=== PATIENT | male | born 1955 | race Caucasian/White ===

== ENCOUNTER → 2016-06-11 | Day surgery (SDC) | payer OTHER ==
[~2016-06-11] VITALS: Ht 167.6 cm; Wt 72.1 kg
--- NOTE | 2016-06-11 11:53 | ED GI/GU/ABDOMINAL COMPLAINT ---
History of Present Illness General Chief Complaint: Abdominal Pain/Flank Pain Stated Complaint: ABD PAIN RADIATING TO L SIDE,+N/V Source: patient Exam Limitations: no limitations Vital Signs & Intake/Output Vital Signs & Intake/Output Vital Signs Date Time Temp Pulse Resp B/P Pulse O2 O2 Flow FiO2 Ox Delivery Rate 06/11 1615 98.0 74 18 118/76 97 Room Air Room Air 06/11 1425 95 Room Air 06/11 1345 98.4 63 20 115/61 95 Room Air 06/11 1103 98.2 81 20 144/82 97 Room Air Allergies Coded Allergies: No Known Allergies (06/11/16) Reconcile Medications No Known Home Medications Triage Note: PT PRESENTS TO ER C/O OF LEFT SIDED ABDOMINAL PAIN THAT RADIATES TO LEFT FLANK. PT STATES PAIN STARTED LAST NIGHT. +N/V Triage Nurses Notes Reviewed? yes HPI: This patient is a 60-year-old male with a past medical history including AMI who presented to the emergency department today for evaluation of abdominal pain and left flank pain. The patient reported that he was woken from sleep at approximately 12:30 AM with an upset stomach. He reported that he vomited approximately 3 or 4 times with no blood in the vomitus that he noticed he reported associated nausea. The patient reported that as the morning went on, she noticed pain in his left flank and pain radiating into his left groin. He denied a history of any kidney stones. He denied any urinary burning, urgency, frequency, or blood in the urine. He reported chills, but no fevers. He denied any chest pain or difficulty breathing. (HERNANDO PULLIAM PA-C) Past History Travel History Traveled to [place] past 21 day No Medical History Any Pertinent Medical History? see below for history Neurological: NONE EENT: NONE Cardiovascular: myocardial infarction Respiratory: NONE Gastrointestinal: NONE Surgical History Surgical History: non-contributory Psychosocial History What is your primary language Arabic Tobacco Use: Never used Family History Hx Contributory? No (HERNANDO PULLIAM PA-C) Review of Systems Review of Systems Constitutional: Reports: see HPI. EENTM: Reports: no symptoms. Respiratory: Reports: no symptoms. Cardiovascular: Reports: no symptoms. GI: Reports: see HPI. Genitourinary: Reports: see HPI. Musculoskeletal: Reports: see HPI. Skin: Reports: no symptoms. Neurological/Psychological: Reports: no symptoms. All Other Systems: Reviewed and Negative (HERNANDO PULLIAM PA-C) Physical Exam Physical Exam Gastrointestinal: normal bowel sounds, soft, non-tender, no organomegaly, NO REBOUND OR GUARDING. nO MASSES APPRECIATED. nO mCbURNEY'S POINT TENDERNESS. nEGATIVE White SIGN. nEGATIVE rOVSING SIGN. nEGATIVE PSOAS SIGN. Comments: Well-developed well-nourished person in no acute distress HEENT: Normal EENT exam, moist mucous membranes Neck: Supple with no lymphadenopathy Back: Normal gait. Normal inspection. Left-sided CVA tenderness. No midline tenderness Cardiovascular: Regular rate and rhythm with no murmurs Respiratory: No respiratory distress. Speaking in full sentences Extremity: Normal and equal pulses Neuro: Alert oriented x3, cranial nerves II through XII grossly intact. Skin: No appreciable rash on exposed skin, skin is warm and dry. Psych: Mood and affect is normal Core Measures ACS in differential dx? No Severe Sepsis Present: No Septic Shock Present: No (HERNANDO PULLIAM PA-C) Progress Differential Diagnosis: AAA, AMI, appendicitis, biliary colic, bowel obstruction , colon cancer, cholecystitis, diverticulitis, gastritis, hepatitis, ischemic bowel, inflamm bowel dis, pancreatitis, PUD/GERD, perforated viscous, pyelonephritis, ureterolithiasis, urinary retention, urethritis, UTI/pyelo Plan of Care: Orders Procedure Date/time Status PATHOLOGY SPECIMEN 06/11 1726 Active EKG 06/11 1600 Active CULTURE,URINE 06/11 1129 Active URINALYSIS 06/11 1129 Complete TROPONIN LEVEL 06/11 1129 Complete LIPASE 06/11 1129 Complete DIRECT BILIRUBIN 06/11 1129 Complete COMPREHENSIVE METABOLIC PANEL 06/11 1129 Complete CBC WITHOUT DIFFERENTIAL 06/11 1129 Complete AMYLASE 06/11 1129 Complete Laboratory Tests 06/11/16 1203: Anion Gap 8, Estimated GFR 56 L, BUN/Creatinine Ratio 21.5, Glucose 124 H, Calcium 9.8, Total Bilirubin 0.6, Direct Bilirubin 0.2, AST 40, ALT 46, Alkaline Phosphatase 61, Troponin I < 0.01, Total Protein 7.1, Albumin 4.2, Globulin 2.9, Albumin/Globulin Ratio 1.4, Amylase 77, Lipase 95, CBC w Diff NO MAN DIFF REQ, RBC 5.33, MCV 89.0, MCH 30.6, RDW 13.1, MPV 7.6, Gran % 84.4 H, Lymphocytes % 11.7 L, Monocytes % 3.6, Eosinophils % 0, Basophils % 0.3, Absolute Granulocytes 12.4 H, Absolute Lymphocytes 1.7, Absolute Monocytes 0.5, Absolute Eosinophils 0, Absolute Basophils 0, PUBS MCHC 34.4 06/11/16 1200: Urine Color YEL, Urine Clarity CLEAR, Urine pH 6.0, Ur Specific [place] 1.025, Urine Protein NEG, Urine Ketones NEG, Urine Nitrite NEG, Urine Bilirubin NEG, Urine Urobilinogen 0.2, Ur Leukocyte Esterase NEG, Ur Microscopic SEDIMENT EXAMINED, Urine RBC 10-15 H, Urine Hemoglobin LARGE H, Urine Glucose NEG Microbiology 06/11 1200 URINE ROUT: Urine Culture - RECD Diagnostic Imaging: Viewed by Me: CT Scan. Discussed w/RAD: CT Scan. Radiology Impression: PATIENT: GAURAV MARTINEZ PRESENT AGE: 60 PATIENT ACCOUNT NO: [id number] : 53 LOCATION: [facility] ORDERING PHYSICIAN: HERNANDO PULLIAM PA-C SERVICE DATE: 06/11/16 EXAM TYPE: CAT - CT ABD & PELVIS W/O IV CONTRAS EXAMINATION: CT ABDOMEN AND PELVIS WITHOUT CONTRAST CLINICAL INFORMATION: Left-sided flank pain, question urolithiasis. COMPARISON: None. TECHNIQUE: Multidetector volumetric imaging was performed from the superior aspect of the liver through the pubic symphysis. Sagittal and coronal reformatted images were obtained on the technologist's workstation. DLP: 347 mGy-cm FINDINGS: There are either stents or extensive atherosclerotic calcification in the left coronaries. Otherwise, the lung bases appear unremarkable. There is moderate soft tissue stranding surrounding the left kidney, with moderate left-sided hydronephrosis with a moderate-sized oblong calculus at the left ureteropelvic junction, measuring 10 x 4 mm. Otherwise, there is no evidence of urolithiasis. No suspicious appearing renal masses are identified on this noncontrast examination. The liver, spleen, pancreas, gallbladder and biliary tree appear unremarkable. A small sliding hiatal hernia is suspected. The adrenal glands appear unremarkable. There is moderate atherosclerotic aortic calcification without aneurysmal dilatation. There is no retroperitoneal lymphadenopathy. The prostate is not significantly enlarged for the patient's age. Urinary bladder is underdistended and unremarkable. The anterior abdominal wall demonstrates a small direct left inguinal hernia containing only mesenteric fat. Lucent changes in the roof of the acetabulum on the right side are likely reactive and degenerative. No aggressive appearing osseous lesions are seen. There are degenerative disc changes greater than facet changes at the lumbosacral junction. IMPRESSION: 1. Small to moderate-sized left renal calculus with moderate left hydronephrosis. 2. Otherwise, there is no evidence of urolithiasis. 3. Otherwise, exam is largely unremarkable with the exception of probable atherosclerotic coronary greater than aortic disease, with a small left inguinal hernia suspected. DICTATED BY: KELLY CALLES MD DATE/TIME DICTATED:06/11/161324 TOURIST HOME KEEPER:LANCE DATE/TIME TRANSCRIBED:06/11/161324 CONFIDENTIAL, DO NOT COPY WITHOUT APPROPRIATE AUTHORIZATION. <Electronically signed in Other Vendor System> SIGNED BY: KELLY CALLES MD 06/11/16 1350 Initial ED EKG: none Comments: 06/11/2016 2:51:44 PM: I spoke to on-call urologist who stated that she will be in to see this patient and bring him to the OR today for stent placement. The patient last ate last night. (HERNANDO PULLIAM PA-C) Departure Departure Disposition: STILL A PATIENT Condition: Stable Clinical Impression Primary Impression: Ureterolithiasis Referrals: CHANNING GOODWIN MD PATIENT HAS NO PRIMARY CARE DR (PCP/Family) Departure Forms: Customer Survey General Discharge Information Prescriptions: Current Visit Scripts No Known Home Medications OR/GI Note Spoke With: CHANNING GOODWIN MD ED Treatment Decision: GAURAV MARTINEZ requires urgent operative management or an emergent procedure that cannot be performed in the Emergency Room setting. Transport To: [facility] (HERNANDO PULLIAM PA-C) PA/METAL ENGRAVER Co-Sign Statement Statement: ED Attending supervision documentation- [] I saw and evaluated the patient. I have also reviewed all the pertinent lab results and diagnostic results. I agree with the findings and the plan of care as documented in the PA's/METAL ENGRAVER's documentation. [X] I have reviewed the ED Record and agree with the PA's/METAL ENGRAVER's documentation. [] Additions or exceptions (if any) to the PAs/METAL ENGRAVER's note and plan are summarized below: [] (ISI AHN DO
[2016-06-11 12:11] LABS: ABSOLUTE BASOPHIL COUNT 0 /CUMM (0.0-0.2); ABSOLUTE EOSINOPHIL COUNT 0 /CUMM (0.0-0.7); ABSOLUTE GRANULOCYTE CT 12.4 /CUMM (1.4-6.5); ABSOLUTE LYMPH COUNT 1.7 /CUMM (1.2-3.4); ABSOLUTE MONOCYTE COUNT 0.5 /CUMM (0.10-0.60); BASOPHIL % 0.3 % (0.0-2.0); EOSINOPHIL % 0 % (0-5); HEMATOCRIT 47.5 % (42-52); MEAN CORPUSCULAR HGB 30.6 PG (27.0-31.0); MEAN CORPUSCULAR HGB CONC 34.4 G/DL (33.0-37.0); MEAN PLATELET VOLUME 7.6 FL (7.4-10.4); PLATELET COUNT 220 /CUMM (130-400); RBC DISTRIBUTION WIDTH 13.1 % (11.5-14.5); RED BLOOD CELL CT 5.33 /CUMM (4.70-6.10); WHITE BLOOD CELL COUNT 14.7 /CUMM (4.8-10.8)
[2016-06-11 12:32] LABS: GRANULOCYTE % 84.4 % (42.2-75.2)
--- NOTE | 2016-06-11 13:50 | CT SCAN REPORT ---
EXAMINATION: CT ABDOMEN AND PELVIS WITHOUT CONTRAST CLINICAL INFORMATION: Left-sided flank pain, question urolithiasis. COMPARISON: None. TECHNIQUE: Multidetector volumetric imaging was performed from the superior aspect of the liver through the pubic symphysis. Sagittal and coronal reformatted images were obtained on the technologist's workstation. DLP: 347 mGy-cm FINDINGS: There are either stents or extensive atherosclerotic calcification in the left coronaries. Otherwise, the lung bases appear unremarkable. There is moderate soft tissue stranding surrounding the left kidney, with moderate left-sided hydronephrosis with a moderate-sized oblong calculus at the left ureteropelvic junction, measuring 10 x 4 mm. Otherwise, there is no evidence of urolithiasis. No suspicious appearing renal masses are identified on this noncontrast examination. The liver, spleen, pancreas, gallbladder and biliary tree appear unremarkable. A small sliding hiatal hernia is suspected. The adrenal glands appear unremarkable. There is moderate atherosclerotic aortic calcification without aneurysmal dilatation. There is no retroperitoneal lymphadenopathy. The prostate is not significantly enlarged for the patient's age. Urinary bladder is underdistended and unremarkable. The anterior abdominal wall demonstrates a small direct left inguinal hernia containing only mesenteric fat. Lucent changes in the roof of the acetabulum on the right side are likely reactive and degenerative. No aggressive appearing osseous lesions are seen. There are degenerative disc changes greater than facet changes at the lumbosacral junction. IMPRESSION: 1. Small to moderate-sized left renal calculus with moderate left hydronephrosis. 2. Otherwise, there is no evidence of urolithiasis. 3. Otherwise, exam is largely unremarkable with the exception of probable atherosclerotic coronary greater than aortic disease, with a small left inguinal hernia suspected.
[2016-06-11 16:15] VITALS: BP 118/76
--- NOTE | 2016-06-11 17:43 | Operative Report ---
Operative/Inv Procedure Report Surgery Date: 06/11/16 Name of Procedure: cystoscopy, left rpg, left stent placement. TURBT of left bladder tumors x2 above ureteral orifice Pre-Operative Diagnosis: left obtructing stone at UPJ Post-Operative Diagnosis: same adn bladder tumors x2 superior to left UO Estimated Blood Loss: less than 50ml Surgeon/Farmworker [employer]: Tammy Oleary Anesthesia: laryngeal mask airway Drains: 6x24 stent Specimens: bladder tumors Complications: none Condition: stable Operative Indication: left obstructing stone with pain Operative/Procedure Note Note: Operative dictation on patient Geoffrey Larios. He was evaluated in the emergency room due to left flank pain. He had a CT scan which showed a left obstructing UPJ stone 10 x 4 mm in size. Had moderate hydronephrosis associated with it and pain medicine was adequate until wore off. As a result he was consented for a left ureteral stent placement with cystoscopy. The risks benefits and alternatives of the surgery were given. All questions were answered. Patient was identified in the holding area and taken to the operating room. He was placed in the supine position and. Timeout was performed. IV Kefzol 2 g were given and LMA anesthesia was started. He was placed in the dorsolithotomy position and prepped and draped in the standard sterile fashion. Cystoscopy was performed and the bladder was globally inspected. It was free of any trabeculation or lesions however there were 2 incidental bladder tumors found on the left lateral wall superior to the ureteral orifice. This was not commented on the CAT scan. The left saphenous ureteral orifice was cannulated with a 5 [place] open-ended catheter. Retropyelogram was performed and there was no evidence of any ureteral obstruction however UPJ mild obstruction with mild hydronephrosis behind it was appreciated. The Solo guidewire was placed up the open-ended catheter and with fluoroscopic guidance the 6 x 24 cm ureteral stent was placed over the wire without difficulty. Once it was seen to be in good position the wire was removed. Attention was then turned to the bladder tumors that were incidentally found. 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 These were resected without difficulty down to bladder muscle. These were sent off to pathology in formalin. The area was coagulated as needed and there was no active bleeding at the end of the case. There were no other tumors that were appreciated. The bladder was emptied. The stent was seen to be in good position. The patient tolerated the procedure well. Findings: well placed lef tureteral stent lateral wall bladder tumors x2 superior to the left ureteral orifice
--- NOTE | 2016-06-11 17:50 | Cons- Urology ---
General Information and HPI Consulting Request Date of Consult: 06/11/16 Requested By: ER Reason for Consult: left obstructing UPJ stone Source of Information: patient Exam Limitations: no limitations History of Present Illness: This is a 60-year-old male with a history of myocardial infarction status post cardiac stent to was evaluated in the [facility] ER due to left flank pain. He was given pain medicine however on CAT scan he was seen to have a 10 x 4 mm obstructing UPJ stone. Given the size of the stone and unremitting pain and elevated white blood count he was kept nothing by mouth for possible ureteral stent. He has no previous history of kidney stones. He has no history of UTIs prostatitis or gross hematuria. Allergies/Medications Allergies: Coded Allergies: No Known Allergies (06/11/16) Home Med List: No Known Home Medications Current Medications: Current Medications Sig/Jose Carlos Start time Last Medication Dose Route Stop Time Status Admin Ketorolac 0 .STK-MED ONE 06/11 1210 DC Tromethamine .ROUTE Ketorolac 30 MG ONCE ONE 06/11 1130 DC 04/03 Tromethamine IV 06/11 1131 1214 Morphine Sulfate 0 .STK-MED ONE 06/11 1418 DC .ROUTE Morphine Sulfate 2 MG ONCE ONE 06/11 1400 DC 04/03 IV 04/03 1401 1420 Ondansetron HCl 0 .STK-MED ONE / 1210 DC .ROUTE Ondansetron HCl 4 MG ONCE ONE 06/11 1130 DC 04/03 IV 04/ 1131 1214 Sodium Chloride 1,000 ML BOLUS ONE 06/11 1130 DC 04/03 IV 04/ 1229 1214 Past History Medical History Blood Transfusion Hx: No Neurological: NONE EENT: NONE Cardiovascular: cardiomyopathy, myocardial infarction Respiratory: NONE Gastrointestinal: NONE Hepatic: NONE Renal: NONE Musculoskeletal: NONE Psychiatric: NONE Endocrine: NONE Blood Disorders: NONE Cancer(s): NONE INSPECTION SUPERVISOR/Reproductive: NONE Surgical History Pertinent Surgical History: non-contributory, cardiac stent Psychosocial History Where Do You Live? Home Services at Home: None Primary Language: Iraqi Smoking Status: Unknown If Ever Smoked ETOH Use: occasional use Illicit Drug Use: denies illicit drug use Living Will? unknown Power of Requirements Analyst/HCP? unknown Functional Ability ADLs Independent: dressing, eating, toileting, bathing. Ambulation: independent IADLs Independent: shopping, housework, finances, food prep, telephone, transportation , medication admin. Employment History Employment: Employed Retired? no Review of Systems Review of Systems Constitutional: Reports: no symptoms. EENTM: Reports: no symptoms. Cardiovascular: Reports: no symptoms. Respiratory: Reports: no symptoms. GI: Reports: no symptoms. Musculoskeletal: Reports: back pain. Skin: Reports: no symptoms. Neurological/Psychological: Reports: no symptoms. Hematologic/Endocrine: Reports: no symptoms. Immunologic/Allergic: Reports: no symptoms. Exam & Diagnostic Data Vital Signs and I&O Vital Signs Date Time Temp Pulse Resp B/P Pulse O2 O2 Flow FiO2 Ox Delivery Rate 06/11 1615 98.0 74 18 118/76 97 Room Air Room Air 06/11 1425 95 Room Air 06/11 1345 98.4 63 20 115/61 95 Room Air 06/11 1103 98.2 81 20 144/82 97 Room Air Intake & Output 06/11 1600 06/11 0800 / 0000 06/10 1600 06/10 0800 06/10 0000 Intake Total 1000 Output Total Balance 1000 Intake, IV 1000 Physical Exam General Appearance: well developed/nourished, no apparent distress, alert, awake , comfortable Head: atraumatic, normal appearance Eyes: Bilateral: normal appearance. Ears, Nose, Throat: normal ENT inspection Neck: normal inspection Respiratory: normal breath sounds Cardiovascular: regular rate/rhythm Gastrointestinal: normal bowel sounds, soft, non-tender Rectal: deferred Back: CVA tenderness (L) Extremities: normal inspection Neurologic/Psych: awake, alert, oriented x 3 Cranial Nerves: normal hearing, normal speech Skin: intact, normal color, warm/dry Reproductive: Normal male genitalia Last 24 Hours of Labs: Laboratory Tests 06/11 06/11 1203 1200 Chemistry Sodium (137 - 145 mmol/L) 140 Potassium (3.5 - 5.1 mmol/L) 4.3 Chloride (98 - 107 mmol/L) 108 H Carbon Dioxide (22 - 30 mmol/L) 24 Anion Gap (5 - 16) 8 BUN (9 - 20 mg/dL) 28 H Creatinine (0.7 - 1.2 mg/dL) 1.3 H Estimated GFR (>60 ml/min) 56 L BUN/Creatinine Ratio (7 - 25 %) 21.5 Glucose (65 - 99 mg/dL) 124 H Calcium (8.4 - 10.2 mg/dL) 9.8 Total Bilirubin (0.2 - 1.3 mg/dL) 0.6 Direct Bilirubin (< 0.4 mg/dL) 0.2 AST (17 - 59 U/L) 40 ALT (21 - 72 U/L) 46 Alkaline Phosphatase (< 127 U/L) 61 Troponin I (<0.11 ng/ml) < 0.01 Total Protein (6.3 - 8.2 g/dL) 7.1 Albumin (3.5 - 5.0 g/dL) 4.2 Globulin (1.9 - 4.2 gm/dL) 2.9 Albumin/Globulin Ratio (1.1 - 2.2 %) 1.4 Amylase (30 - 110 U/L) 77 Lipase (23 - 300 U/L) 95 Hematology CBC w Diff NO MAN DIFF REQ WBC (4.8 - 10.8 /CUMM) 14.7 H RBC (4.70 - 6.10 /CUMM) 5.33 Hgb (14.0 - 18.0 G/DL) 16.3 Hct (42 - 52 %) 47.5 MCV (80.0 - 94.0 FL) 89.0 MCH (27.0 - 31.0 PG) 30.6 RDW (11.5 - 14.5 %) 13.1 Plt Count (130 - 400 /CUMM) 220 MPV (7.4 - 10.4 FL) 7.6 Gran % (42.2 - 75.2 %) 84.4 H Lymphocytes % (20.5 - 51.1 %) 11.7 L Monocytes % (1.7 - 9.3 %) 3.6 Eosinophils % (0 - 5 %) 0 Basophils % (0.0 - 2.0 %) 0.3 Absolute Granulocytes (1.4 - 6.5 /CUMM) 12.4 H Absolute Lymphocytes (1.2 - 3.4 /CUMM) 1.7 Absolute Monocytes (0.10 - 0.60 /CUMM) 0.5 Absolute Eosinophils (0.0 - 0.7 /CUMM) 0 Absolute Basophils (0.0 - 0.2 /CUMM) 0 PUBS MCHC (33.0 - 37.0 G/DL) 34.4 Urines Urine Color (YEL,AMB,STR) YEL Urine Clarity (CLEAR) CLEAR Urine pH (5.0 - 8.0) 6.0 Ur Specific [place] (1.001 - 1.035) 1.025 Urine Protein (NEG,<30 MG/DL) NEG Urine Ketones (NEG) NEG Urine Nitrite (NEG) NEG Urine Bilirubin (NEG) NEG Urine Urobilinogen (0.1 - 1.0 EU/dl) 0.2 Ur Leukocyte Esterase (NEG) NEG Ur Microscopic SEDIMENT EXAMINED Urine RBC (0 - 5 /HPF) 10-15 H Urine Hemoglobin (NEG) LARGE H Urine Glucose (N MG/DL) NEG Imaging Results: CT scan with 10x4mm UPJ stone with moderate hydronephrosis Assessment/Plan Assessment/Plan This is a 60-year-old male with a past medical history of coronary artery disease and OH status post cardiac stent. He was evaluated in the [facility] ER with left flank pain and found to have a left obstructing UPJ stone on CAT scan with hydronephrosis. He was consented for a left ureteral stent placement and given the risks benefits and alternatives. He was kept nothing by mouth with IV fluids. He will be taken to the OR for cystoscopy and left stent placement. Consult Acknowledgment - Thank you for your consult request.
--- NOTE | 2016-06-11 18:51 | RADIOLOGY REPORT ---
EXAMINATION: XR ABDOMEN CLINICAL INDICATION: Left cystoscopy with stent placement. COMPARISON: Abdominal CT performed earlier today. TECHNIQUE: 2 intraoperative fluoroscopic images were obtained for Dr. Tammy Yang. FLUORO TIME: 9 seconds. FINDINGS/IMPRESSION: These 2 intraoperative images demonstrate cannulation and retrograde contrast opacification of the left ureter and left renal collecting system. The first submitted image demonstrates partial contrast opacification of the moderately dilated left renal collecting system. The previously seen calculus within the left renal pelvis is identified as a filling defect in this location. A reported stent is not seen on these images.
== END ==
LOC: ERH 10:47 → STS 16:18
PROVIDERS: Physician Assistant
DX: C67.2 Malignant neoplasm of lateral wall of bladder (principal); N13.2 Hydronephrosis with renal and ureteral calculous obstruction; I25.10 Atherosclerotic heart disease of native coronary artery without angina pectoris; Z95.5 Presence of coronary angioplasty implant and graft
CPT/HCPCS: 74000; 74176; 81001; 87086; 88305; 88307; 93005; 93010; 96361; 96374; 96375; C2617; J1885; J2250; J2405; J3010

== ENCOUNTER → 2016-07-23 | Day surgery (SDC) | payer OTHER ==
[~2016-07-23] VITALS: Ht 167.6 cm; Wt 70.3 kg
--- NOTE | 2016-07-23 09:02 | Operative Report ---
Operative/Inv Procedure Report Surgery Date: 07/23/16 Name of Procedure: LEFT EXTRACORPOREAL SHOCKWAVE LITHOTRIPSY. Pre-Operative Diagnosis: left renal UPJ stone (stent in place from previous surgery) Post-Operative Diagnosis: same Estimated Blood Loss: scant Surgeon/Continuous Mining Machine Lode Miner: CHANNING GOODWIN MD Anesthesia: local monitored anesthesi Complications: none Condition: stable Operative Indication: left renal UPJ stone Operative/Procedure Note Note: Geoffrey Larios was identified in the holding area and consented for a left extracorporeal shockwave lithotripsy. He was given the risks, benefits and alternatives and all questons were answered. He was taken to the OR and placed in a supine position. A timeout was performed. He was positioned for optimal stone visualization with flouroscopy and US. The ESWL was started on the 10x7mm stone seen in the renal pelvis and the stent was seen as well. Shocks started with a power of 10 for 100 shocks, power of 11 for 100shocks, then 12 for 100 shocks, 13 at 100 shocks and finally power of 20 for 2100 shocks. Patient tolerated the procedure well. Final xray and US showed fragmentation of the stone with little visible fragment. Findings: left renal stone 10x7mm stone fragmented well with no large remaining stone fragments. Discharge Disposition: Same Day Admissions
== END ==
LOC: STS 02:20
DX: N20.0 Calculus of kidney (principal); C67.9 Malignant neoplasm of bladder, unspecified; I25.2 Old myocardial infarction; Z95.5 Presence of coronary angioplasty implant and graft
CPT/HCPCS: J1885; J2250